=== PATIENT | male | born 1955 | race Caucasian/White ===

== ENCOUNTER 2016-10-14 13:52 | Emergency (ER) | payer MEDICAID, MEDICARE ==
[~2016-10-14] VITALS: Ht 182.9 cm; Wt 101.4 kg
[~2016-10-14 13:52] MED LIST: ATOR20TA86 PO; FURO20 PO; GABA-529 PO; INSNOV SQ; LOSA50TA37 PO; TAMS0.4C32 PO
[2016-10-14 14:17] LABS: GLUCOSE,POINT OF CARE 161 MG/DL (70-110)
[2016-10-14 15:14] LABS: BASOPHILS % (AUTO) 0.2 % (0.0-2.0); EOSINOPHILS % (AUTO) 0.8 % (1.0-6.0); HEMATOCRIT 31.3 % (41-53); HEMOGLOBIN 10.5 g/dL (13.5-17.5); LYMPHOCYTES # (AUTO) 1.2 K/uL (1.0-4.8); LYMPHOCYTES % (AUTO) 8.4 % (22.0-44.0); MEAN CORPUSCULAR HEMOGLOBIN 30.3 pg (26.0-34.0); MEAN CORPUSCULAR HGB CONC 33.5 G/dL (31.0-37.0); MEAN CORPUSCULAR VOLUME 91 fL (80-100); MONOCYTES # (AUTO) 1.3 K/uL (0.1-1.0); MONOCYTES % (AUTO) 9.4 % (2.0-9.0); NEUTROPHILS # (AUTO) 11.4 K/uL (1.8-7.7); NEUTROPHILS % (AUTO) 81.2 % (40.0-70.0); PLATELET COUNT (AUTO) 310 K/uL (150-450); RED BLOOD CELL COUNT(AUTO) 3.46 MIL/uL (4.50-5.90); RED CELL DISTRIBUTION WIDTH 14.2 % (11.5-14.5)
[2016-10-14] MEDS ORDERED: METOCLOPRAMIDE HCL 5 MG/ML 2 ML VIAL IM ONE ×2 (15:15→18:00)
[2016-10-14 15:31] LABS: CALCIUM, TOTAL 9.1 mg/dL (8.8-10.5); CREATININE 1.27 mg/dL (0.60-1.30); POTASSIUM 4.4 mmol/L (3.5-5.1)
[2016-10-14 15:38] LABS: ALBUMIN 2.5 g/dL (3.4-5.0); BILIRUBIN,TOTAL 0.4 mg/dL (0.1-1.0); TOTAL PROTEIN, SERUM 7.2 g/dL (6.4-8.2)
[2016-10-14] MEDS ORDERED: SULFAMETHOX/TRIMETH DS 800-160 MG/TABLET PO ONE (16:30)
[2016-10-14] MEDS ORDERED: CloNIDine HCL 0.2 MG TABLET PO ONE (16:30)
[2016-10-14 19:45] VITALS: BP 95/58
== END 2016-10-14 21:10 | disposition home or self-care (01) ==
LOC: EMS 13:54
DX: R06.6 Hiccough (principal); L03.116 Cellulitis of left lower limb; E11.9 Type 2 diabetes mellitus without complications; I10 Essential (primary) hypertension; Z88.0 Allergy status to penicillin
CPT/HCPCS: 36415; 80053; 82962; 85025; 96372; 99284; J2765

== ENCOUNTER 2016-10-14 22:21 | Emergency (ER) | payer MEDICARE ==
[~2016-10-14] VITALS: Ht 182.9 cm; Wt 100.0 kg
[2016-10-15 00:25] VITALS: BP 130/72
== END 2016-10-15 00:57 | disposition home or self-care (01) ==
LOC: EMS 22:29
DX: R06.6 Hiccough (principal); E11.9 Type 2 diabetes mellitus without complications; I10 Essential (primary) hypertension; Z86.73 Personal history of transient ischemic attack (TIA), and cerebral infarction without residual deficits; Z88.0 Allergy status to penicillin
CPT/HCPCS: 99283

== ENCOUNTER 2016-11-08 03:12 | Emergency (ER) | payer MEDICARE ==
[~2016-11-08] VITALS: Ht 180.3 cm; Wt 93.1 kg
[~2016-11-08 03:12] MED LIST changes: -INSNOV SQ
[2016-11-08] MEDS ORDERED: PANT40TA25 PO (03:22)
[2016-11-08] MEDS ORDERED: MULT1CAP32 PO (03:22)
[2016-11-08] MEDS ORDERED: INSNOV SQ (03:22)
[2016-11-08 04:18] LABS: GLUCOSE,POINT OF CARE 158 MG/DL (70-110)
[2016-11-08 04:37] VITALS: BP 140/90
[2016-11-08] MEDS ORDERED: LORazepam 1 MG TABLET PO ONE (04:45)
== END 2016-11-08 05:02 | disposition home or self-care (01) ==
LOC: EMS 03:14
DX: R45.1 Restlessness and agitation (principal); E11.9 Type 2 diabetes mellitus without complications; I10 Essential (primary) hypertension; F17.210 Nicotine dependence, cigarettes, uncomplicated; Z88.0 Allergy status to penicillin; Z86.73 Personal history of transient ischemic attack (TIA), and cerebral infarction without residual deficits; Z79.4 Long term (current) use of insulin; J44.9 Chronic obstructive pulmonary disease, unspecified
CPT/HCPCS: 82962; 99283